=== PATIENT | female | born 1990 | race Caucasian/White ===

== ENCOUNTER 2016-10-05 18:15 | Outpatient (CLI) | payer OTHER ==
[~2016-10-05] VITALS: Ht 152.4 cm; Wt 79.5 kg
[2016-10-05 18:35] VITALS: Ht 152.4 cm; Wt 79.5 kg
[2016-10-05] MEDS ORDERED: PRENAT PO (18:37)
--- NOTE | 2016-10-05 20:36 | PN ---
Date/Time of Note Date/Time of Note DATE: 10/05/16 TIME: 20:34 OB Subjective Subjective Subjective 26 yo P0 @ 39wks 5 days, presents w ctx, no VB, no LOF, good FM OB Objective Objective Objective Abdomen- gravid, n/t SVE- 1/50/-2 FHT- Cat I [place]- irreg ctx OB Assessment/Plan Other plan: reassuring status not in labor d/c home labor precautions BIANCA BARRON MD Oct 05, 2016 20:36
--- NOTE | 2016-10-05 20:42 | TRIAGE ---
OB Triage Datetime Report Generated by CPN: 10/05/2016 20:42 Datetime: 10/05/2016 20:29 Stage of : OB Triage Monitor Mode: External Quality: Moderate Pattern: Normal: <= 5 Contractions in 10 Minutes Resting Tone [place]: Relaxed Heart Rate FHR Baseline Rate: 140 Monitor Mode: External US FHR Baseline Changes: No Baseline Change Variability: Moderate 6-25 bpm Accelerations: 15X15 Decelerations: None Category: Category I Datetime: 10/05/2016 19:29 Stage of : OB Triage Labor Evaluation Frequency: q6-8 Monitor Mode: External Duration (sec)2399: 60-90 Quality: Moderate Pattern: Normal: <= 5 Contractions in 10 Minutes Resting Tone [place]: Relaxed Heart Rate FHR Baseline Rate: 140 Monitor Mode: External US FHR Baseline Changes: No Baseline Change Variability: Moderate 6-25 bpm Accelerations: 15X15 Decelerations: None Category: Category I Datetime: 10/05/2016 19:00 Stage of : OB Triage Labor Evaluation Frequency: 5-8 Monitor Mode: External Duration (sec)2399: 50-90 Quality: Moderate Pattern: Normal: <= 5 Contractions in 10 Minutes Resting Tone [place]: Relaxed Heart Rate FHR Baseline Rate: 140 Monitor Mode: External US FHR Baseline Changes: No Baseline Change Variability: Moderate 6-25 bpm Accelerations: 15X15 Decelerations: None Category: Category I Datetime: 10/05/2016 18:29 Stage of : OB Triage Assessment Type: Triage Maternal Assessment Level of Consciousness: Fully Conscious DTR's/Clonus: DTRs 2+; No Clonus Headache: Denies Blurred Vision: No Respiratory Effort: Unlabored; Regular Rhythm; Equal Expansion Breath Sounds, Left: Clear and Equal Breath Sounds, Right: Clear and Equal Nausea/Vomiting: Denies RUQ Epigastric Pain: Denies Lower Extremities Edema: None Degree: None Upper Extremities Edema: None Degree: None Facial Edema: None Temperature Route: Axillary Fall Risk Assessment History of Falling: (0) No Secondary Diagnosis: (0) No Ambulatory Aid: (0) Bedrest/Nurse Assist IV Therapy: (0) No Gait: (0) Normal/Bedrest/Immobile Mental Status: (0) Oriented to Own Ability Fall Score: 0 Fall Risk Score Definition: No Risk: No action required Labor Evaluation Frequency: X1 Monitor Mode: External Duration (sec)2399: 50 Quality: Mild Pattern: Normal: <= 5 Contractions in 10 Minutes Resting Tone [place]: Relaxed Heart Rate FHR Baseline Rate: 145 Monitor Mode: External US Variability: Moderate 6-25 bpm Decelerations: None Category: Category I Pain Assessment Pain Scale: 6 Pain Presence: Intermittent Pain Type: Cramping; Contraction Pain Location: Abdomen Pain Goal: 3 Pain Relief Measures: Comfort Measures Vaginal Exam Dilatation (cms): 1.0 Effacement (%): 50 Station: -2 Exam By: bry britney Membrane Status: Intact Datetime: 10/05/2016 18:28 EGA: 39.5 Datetime: 10/05/2016 18:27 Time of Arrival: 10/05/2016 18:10 Arrived By: Ambulatory Arrived From: Dr. Jang Chief Complaint: WAS AT CLINIC TODAY AND HAVING UC'S SENT IN BY CLINIC. SCANT BLEEDING, UC'S APPR OX 7-10 DENIES LEAKING Movement: Present Contractions: Irregular Rupture of Membranes: Denies Vaginal Discharge: Present Recent Sexual Intercouse: Denies Abdominal Trauma: Not Applicable Patient Complaints: Cramping Time Provider Notified: 10/05/2016 19:00 Provider Notified: Dr Kaur Initial Plan: MONITOR, VE
== END 2016-10-05 20:39 | disposition home or self-care (01) ==
LOC: L-D 18:15 → OBT 18:15
PROVIDERS: ATTEND Obstetrics & Gynecology
DX: O62.9 Abnormality of forces of labor, unspecified (principal); Z3A.39 39 weeks gestation of pregnancy
CPT/HCPCS: G0463

== ENCOUNTER 2016-10-09 18:15 | Inpatient (IN) | payer OTHER ==
[~2016-10-09] VITALS: Ht 152.4 cm; Wt 79.2 kg
[~2016-10-09 18:15] MED LIST: PRENAT PO
[2016-10-09 18:31] VITALS: Ht 152.4 cm; Wt 79.2 kg
--- NOTE | 2016-10-09 19:03 | TRIAGE ---
OB Triage Datetime Report Generated by CPN: 10/09/2016 19:02 Datetime: 10/09/2016 18:43 Maternal Assessment Level of Consciousness: Fully Conscious DTR's/Clonus: DTRs 1+ Headache: Denies Blurred Vision: No Nausea/Vomiting: Denies RUQ Epigastric Pain: Denies Facial Edema: None Labor Evaluation Frequency: 2-4 Monitor Mode: External Duration (sec)2399: 40-90 Quality: Mild Pattern: Normal: <= 5 Contractions in 10 Minutes Resting Tone [place]: Relaxed Heart Rate FHR Baseline Rate: 140 Monitor Mode: External US Variability: Moderate 6-25 bpm Accelerations: 15X15 Decelerations: None Category: Category I Pain Assessment Pain Scale: 2 Pain Presence: Intermittent Pain Type: Contraction Pain Location: Back Pain Goal: 3 Membrane Status: Intact Datetime: 10/09/2016 18:42 Vaginal Exam Dilatation (cms): 1.0 Effacement (%): 80 Station: -3 Exam By: KASSANDRA GARDNER Vaginal Bleeding: None Cervix, Consistency: Soft Cervix, Position: Midposition Presentation 'A': Cephalic Datetime: 10/09/2016 18:30 Assessment Type: Triage Time of Arrival: 10/09/2016 18:30 EGA: 40.2 Arrived By: Wheelchair Arrived From: Dr. Jang Chief Complaint: R/O LABOR Movement: Present Contractions: Regular Time Contractions Began: 10/09/2016 08:00 Contractions: 5-10 Rupture of Membranes: Denies Vaginal Discharge: Denies Recent Sexual Intercouse: Denies Abdominal Trauma: Not Applicable Patient Complaints: Contractions Additional Patient Complaints: NONE Time Provider Notified: 10/09/2016 18:30 Provider Notified: AIME Initial Plan: MONITOR AND VE Maternal Assessment Level of Consciousness: Fully Conscious DTR's/Clonus: DTRs 2+; No Clonus Headache: Denies Blurred Vision: No Respiratory Effort: Unlabored; Regular Rhythm; Equal Expansion Breath Sounds, Left: Clear and Equal Breath Sounds, Right: Clear and Equal Nausea/Vomiting: Denies RUQ Epigastric Pain: Denies Lower Extremities Edema: None Degree: None Upper Extremities Edema: None Degree: None Facial Edema: None Fall Risk Assessment History of Falling: (0) No Secondary Diagnosis: (0) No Ambulatory Aid: (0) Bedrest/Nurse Assist IV Therapy: (0) No Gait: (0) Normal/Bedrest/Immobile Mental Status: (0) Oriented to Own Ability Fall Score: 0 Fall Risk Score Definition: No Risk: No action required Datetime: 10/05/2016 18:29 Fall Score: 0 Fall Risk Score Definition: No Risk: No action required Datetime: 10/05/2016 18:28 EGA: 39.5
[2016-10-09 19:46] LABS: BASOPHILS % 0.1 % (0.0-2.0); CONDITION 1; EOSINOPHILS # 0.1 10^3/ul (0.0-0.5); EOSINOPHILS % 0.7 % (0.0-7.0); HEMATOCRIT 35.1 % (37.0-47.0); HEMOGLOBIN 12.3 g/dl (12.0-16.0); LYMPHOCYTES # 1.5 10^3/ul (0.8-2.9); LYMPHOCYTES % 13.9 % (15.0-51.0); MEAN CORPUSCULAR HEMOGLOBIN 33.4 pg (29.0-33.0); MEAN CORPUSCULAR VOLUME 95.4 fl (82.0-101.0); MONOCYTE # 0.7 10^3/ul (0.3-0.9); MONOCYTES % 5.9 % (0.0-11.0); NEUTROPHIL # 8.8 10^3/ul (1.6-7.5); NEUTROPHILS % 79.4 % (39.0-77.0); PLATELET COUNT 198 10^3/UL (140-440); RED BLOOD COUNT 3.68 10^6/ul (4.20-5.40); RED CELL DISTRIBUTION WIDTH 14.3 % (11.5-14.5); UNCORRECTED WBC 11.1 10^3/ul (4.8-10.8); WHITE BLOOD COUNT 11.1 10^3/ul (4.8-10.8)
[2016-10-09] MEDS ORDERED: OXYTOCIN 30 UNITS/LR 500 ML IV PRN (20:00)
[2016-10-09] MEDS ORDERED: OXYTOCIN 30 UNITS/LR 500 ML IV SCH ×2 (20:00)
[2016-10-09] MEDS ORDERED: IBUPROFEN 600 MG TAB PO PRN (20:00)
[2016-10-09] MEDS ORDERED: METHYLERGONOVINE 0.2 MG INJ IM PRN (20:00)
[2016-10-09] MEDS ORDERED: LIDOCAINE 1% (MPF) 30 ML INJ INJ PRN (20:00)
[2016-10-09] MEDS ORDERED: CARBOPROST 250 MCG INJ IM PRN (20:00)
[2016-10-09] MEDS ORDERED: MISOPROSTOL 200 MCG TAB PR PRN (20:00)
[2016-10-09] MEDS ORDERED: BUTORPHANOL 2 MG INJ IV PRN (20:00)
[2016-10-09] MEDS: LACTATED RINGER'S 1,000 ML IV SCH (20:03)
[2016-10-09 20:31] LABS: INR 0.97; PROTIME 12.9 Sec (12.2-14.2)
[2016-10-09 20:32] LABS: PARTIAL THROMBOPLASTIN TIME 24.2 Sec (25.0-35.0)
[2016-10-09] MEDS: MISOPROSTOL 25 MCG CAPSULE PO SCH (21:49)
[2016-10-10] MEDS: MISOPROSTOL 25 MCG CAPSULE PO SCH (01:00)
[2016-10-10] MEDS: LACTATED RINGER'S 1,000 ML IV SCH ×3 (01:03→21:43)
[2016-10-10] MEDS ORDERED: MISOPROSTOL 25 MCG CAPSULE PO PRN (02:10)
[2016-10-10] MEDS ORDERED: BUTORPHANOL 2 MG INJ IV PRN (03:57)
[2016-10-10] MEDS: LACTATED RINGER'S 1,000 ML IV PRN ×2 (06:57→07:50)
[2016-10-10] MEDS ORDERED: FENTAnyl 2MCG/ML-ROPIV 0.2% 100 ML ONE (07:45)
[2016-10-10 08:21] VITALS: BP 119/65; PULSE 87; RESP 20
[2016-10-10] MEDS: OXYTOCIN 30 UNITS/LR 500 ML IV SCH (08:41)
[2016-10-10] MEDS ORDERED: NALOXONE (0.4 MG/ML) INJ IV PRN (10:00)
--- NOTE | 2016-10-10 10:19 | RADRPT ---
PROCEDURE: Obstetrical ultrasound. CLINICAL INDICATION: , evaluation. Pelvic pain. Macrosomia TECHNIQUE: Transabdominal sonographic images of the pelvis are obtained. COMPARISON: No prior studies are available for comparison. FINDINGS: Cervix is not visualized transabdominally. Single intrauterine gestation. There is a cephalic presentation. Measurements were made in order to determine age. The results are as follows: BPD = 9.40 cm HC = 34.02 cm AC = 36.03 cm FL = 7.06 cm Heart rate = 154 beats per minute The placenta is fundal - posterior; lower margin is not well visualized. No evidence of placental ab ruption is seen. Ovaries are not visualized. IMPRESSION: Single intrauterine gestation of approximately 38 weeks 3 days by ultrasound criteria. Estimated weight = 3616 g; 43 percentile for estimated ultrasound age. RPTAT: AADD .Jose Luis Arce MD, Date Time Electronically viewed and signed by .Jose Luis Arce MD, on 10/10/2016 10:18 .B/
[2016-10-10] MEDS: FENTAnyl 2MCG/ML-ROPIV 0.2% 100 ML BAG EPI SCH ×3 (15:41→23:03)
[2016-10-10] MEDS ORDERED: AMPICILLIN 2 GM/NS (PMX) 100 ML IVPB ONE (21:00)
[2016-10-10] MEDS ORDERED: CLINDAMYCIN 900 MG/D5W (PMX) 50 ML IVPB SCH (21:00)
[2016-10-10] MEDS ORDERED: GENTAMICIN 120 MG/NS (PMX) 100 ML IVPB ONE (23:30)
[2016-10-11] MEDS ORDERED: VANCOMYCIN 1 GM (PMX) 250 ML IVPB SCH (00:30)
[2016-10-11] MEDS ORDERED: AMPICILLIN 1 GM/NS (PMX) 50 ML IVPB SCH (01:00)
[2016-10-11 01:05] LABS: HEMATOCRIT 35.1 % (37.0-47.0); HEMOGLOBIN 12.1 g/dl (12.0-16.0); LYMPHOCYTES # 0.9 10^3/ul (0.8-2.9); MEAN CORPUSCULAR HEMOGLOBIN 33.2 pg (29.0-33.0); MEAN CORPUSCULAR HGB CONC 34.6 g/dl (32.0-37.0); MEAN CORPUSCULAR VOLUME 95.7 fl (82.0-101.0); MEAN PLATELET VOLUME 8.1 fl (7.4-10.4); MONOCYTE # 1.3 10^3/ul (0.3-0.9); MONOCYTES % 7.9 % (0.0-11.0); NEUTROPHIL # 14.8 10^3/ul (1.6-7.5); NEUTROPHILS % 87.1 % (39.0-77.0); PLATELET COUNT 188 10^3/UL (140-440); RED BLOOD COUNT 3.66 10^6/ul (4.20-5.40); RED CELL DISTRIBUTION WIDTH 14.4 % (11.5-14.5)
[2016-10-11 01:06] LABS: CONDITION 1
[2016-10-11] MEDS: LACTATED RINGER'S 1,000 ML IV SCH ×3 (07:19→19:36)
[2016-10-11] MEDS: FENTAnyl 2MCG/ML-ROPIV 0.2% 100 ML BAG EPI SCH ×2 (07:45→14:57)
[2016-10-11] MEDS: GENTAMICIN 80 MG/NS (PMX) 50 ML IVPB SCH ×2 (07:55→20:15)
[2016-10-11] MEDS: OXYTOCIN 30 UNITS/LR 500 ML IV SCH ×2 (10:52→23:17)
[2016-10-11] MEDS ORDERED: CITRIC ACID/NA CITRATE 30 ML CUP ONE (17:16)
[2016-10-11] MEDS ORDERED: ONDANSETRON 4 MG INJ ONE (17:16)
[2016-10-11] MEDS ORDERED: ONDANSETRON 4 MG INJ IV STA (17:17)
[2016-10-11] MEDS ORDERED: MISOPROSTOL 200 MCG TAB PR PRN ×2 (17:30→22:30)
[2016-10-11] MEDS ORDERED: METHYLERGONOVINE 0.2 MG INJ IM PRN ×2 (17:30→22:30)
[2016-10-11] MEDS ORDERED: OXYTOCIN 30 UNITS/LR 500 ML IV PRN ×2 (17:30→22:30)
[2016-10-11] MEDS ORDERED: CARBOPROST 250 MCG INJ IM PRN ×2 (17:30→22:30)
[2016-10-11] MEDS ORDERED: CITRIC ACID/NA CITRATE 30 ML CUP PO ONE (17:30)
--- NOTE | 2016-10-11 17:44 | HP ---
Date/Time of Note Date/Time of Note DATE: 10/11/16 TIME: 17:19 OB - History Hx of Present Free Text/Dictation This is a 26 years old Frisian female 1 para 0 with an EDC of October [address] [facility] for induction of labor on October 09, 2016. Upon admission to the labor and delivery room pelvic pelvic examination carried out cervical dilatation at 1 cm 60% effacement -2 station induction started by trac Cytotec 50 g 2 followed with Pitocin induction, continued having good contraction with progress in cervical dilatation, pelvic examination at 7:30 on October 11 cervical dilatation at 9 cm 100% effacement with presenting part vertex at -2 station moderate to large caput, labor allowed to continue however cervical dilatation did not progress further beyond 9 cm, pelvic exam on 1529 cervix was completely dilated then patient started pushing at 1600 for approximately 1 hour and 30 minutes when she decided not to continue further pushing and trial of labor, requested operative delivery by C section. 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13 history of regular periods lasting for 5 days per cycle No history of any surgical or medical condition in patients past surgery Social habits Denies smoking or drinking Review of system within normal considering term regnancy Physical exam 5 foot, 174 pounds Temperature 97.9 pulse 91 respiration 18 blood pressure 122/71 Head ears nose and throat normal Neck, supple no thyromegaly Lungs clear to PNA Heart, normal sinusal rhythm ,no murmur Breasts, status compatible with state of Abdomen, fundal height 37 cm from symphysis pubis to the height of the fundus heart rate category 1, contraction every 3-4 minutes Pelvic exam, cervix completely dilated presenting part vertex at -2 station with large caput Impression Intrauterine at 40 weeks and 4 days failure to progress at second stage of labor declined further trial of labor at second stage requesting C- section delivery Patient is aware of complication of the surgery including bowel, bladder injury wound infection hemorrhage and wound hematoma she is willing to proceed with the operation Estimated Due Date: Oct 07, 2016 : 1 Para: 0 Care: Limited Care Ultrasounds: Normal mid trimester US Obstetrical Complications: None Medical Complications: None Past Family/Social History * Past Medical, Surgical, Family and Obstetric Histories reviewed from chart. Rubella: immune RPR/VDRL: Negative GBS Status: Negative HBsAG: Negative OB Admission Exam Vital Signs Vital Signs Vital Signs Date Time Temp Pulse Resp B/P Pulse Ox O2 Delivery O2 Flow Rate FiO2 10/10/16 08:21 98.6 87 20 119/65 Room Air Physical Exam HEENT: WNL Heart: Rhythm Normal Lungs: Clear, Equal Extremities: Normal Reflexes: Normal Cervical Dilatation: 10cm Effacement: 100% Station: -2 Membranes: Ruptured Amniotic Fluid: Thick Meconium Heart Rate: 130's Accelerations: Accelerations Present Decelerations: No Decelerations Varibility: Moderate Contractions on Admission: < 5 Minutes Apart Intensity: Firm Last 72 hours Lab Results CBC & BMP 10/09/16 19:30 10/10/16 00:32 SOHEILA SALOMON MD Oct 11, 2016 17:38
[2016-10-11] MEDS ORDERED: OXYTOCIN 10 UNIT INJ ONE (17:49)
[2016-10-11] MEDS ORDERED: morphine SULFATE/PF (10 MG/10 ML) INJ ONE (17:49)
[2016-10-11] MEDS ORDERED: LIDOCAINE 2% (SDV) 5 ML INJ ONE ×3 (17:49→17:57)
[2016-10-11] MEDS ORDERED: METOCLOPRAMIDE 10 MG INJ ONE (17:49)
[2016-10-11] MEDS ORDERED: FENTAnyl 50 MCG/ML VIAL ONE ×3 (17:49→18:25)
[2016-10-11] MEDS ORDERED: NA BICARBONATE 8.4% 50 ML SYG ONE (17:49)
[2016-10-11] MEDS ORDERED: KETOROLAC 30 MG INJ ONE (18:25)
[2016-10-11] MEDS ORDERED: DIPHENHYDRAMINE 50 MG INJ IV PRN ×2 (18:30)
[2016-10-11] MEDS ORDERED: ONDANSETRON 4 MG INJ IV PRN ×2 (18:30)
[2016-10-11] MEDS ORDERED: HYDROmorphONE (0.2 MG/ML) 10ML SYG IV PRN ×3 (18:30)
[2016-10-11] MEDS ORDERED: LABETALOL HCL 20MG INJ IV PRN (18:30)
[2016-10-11] MEDS ORDERED: morphine 2 MG INJ IV PRN ×2 (18:30)
[2016-10-11] MEDS ORDERED: EPHEDrine SULFATE 50 MG/5 ML SYG IV PRN (18:30)
[2016-10-11] MEDS ORDERED: MIDAZOLAM 1 MG/ML 2 ML INJ IV PRN (18:30)
[2016-10-11] MEDS ORDERED: FENTAnyl 50 MCG/ML VIAL IV PRN ×3 (18:30)
[2016-10-11] MEDS ORDERED: NALOXONE (0.4 MG/ML) INJ IV PRN (18:30)
[2016-10-11] MEDS ORDERED: TRIMETHOBENZAMIDE 100 MG/ML VIAL IM PRN (18:30)
[2016-10-11] MEDS ORDERED: ZOLPIDEM 5 MG TAB PO PRN (18:30)
[2016-10-11] MEDS ORDERED: hydrALAzine 20 MG INJ IV PRN (18:30)
[2016-10-11] MEDS ORDERED: MEPERIDINE 25 MG INJ IV PRN (18:30)
--- NOTE | 2016-10-11 19:04 | OPR ---
DATE OF OPERATION: 10/11/2016 PREOPERATIVE DIAGNOSES: 1. Intrauterine 40 weeks 4 days, failed induction, failed to progress second stage of lab or. 2. Declined further trial of labor at second stage of labor, requesting operative delivery. PROCEDURE: Primary transverse low cervical section. SURGEON: Soheila Kaur MD PIG CASTER: Edgar Mar MD ANESTHESIA: Spinal. ANESTHESIOLOGIST: Dr. Eldridge. FINDINGS: Live baby boy with the 8 and 9. Baby weighed 8 pounds 9 ounces. DETAILS OF THE PROCEDURE: Under satisfactory spinal anesthesia, the patient was prepped and draped, and placed in supine position, tilted to the left. Pfannenstiel incision was made. Incision jatin ed through the subcutaneous tissue. Bleeders brought under control with electrocautery. Fascia inc ised to the length of the incision. Rectus muscle divided in midline. Peritoneum exposed, entered through a transverse incision. Exploration of abdomen revealed a gravid uterus at term, evidence of a long labor with normal appearing tubes and ovaries. Bladder flap was developed. Transverse inci artem was made in the lower segment of the uterus. Amniotic sac ruptured. Scant amount of clear amn iotic fluid noted. Live baby boy was delivered from occiput posterior with the baby's hand on the r ight side of the baby's face. Nasal oropharyngeal suction was performed. Baby handed to the neonat al team for immediate attention. The patient received 20 units of Pitocin. Placenta delivered manu ally intact. Uterine cavity cleaned with wet sponge and drainage established. Uterus closed in 2 l merida using Monocryl #1 in continuous fashion. Peritoneal cavity irrigated with warm saline. Spong e, needle, and instrument reported to be correct. Abdominal peritoneum closed with 2-0 chromic catg ut continuously. Rectus muscle approximated with few interrupted 2-0 chromic catgut. Fascia closed with #1 PDS in a continuous fashion. Subcutaneous tissue approximated with 2-0 chromic catgut and the skin closed with chantal. ESTIMATED BLOOD LOSS: 700 mL. URINE OUTPUT: Urine bag contained blood tinged urine, which was the same color prior to the surgery , approximately 200 to 300 mL in the bag. The patient tolerated procedure well, transferred to recovery room in a good condition. Dictated By: SOHEILA MARKHAM/NTS Conf#: [id number] [facility]#: [id number]
[2016-10-11] MEDS: KETOROLAC 30 MG INJ IV PRN (19:34)
--- NOTE | 2016-10-11 21:21 | DELSUM ---
Delivery Summary A-C Datetime Report Generated by CPN: 10/11/2016 21:21 DELIVERY PERSONNEL Radiological Health Specialist: Michellepaul Violeta Enrollment Representative: RUSLAN MATERNAL INFORMATION Delivery Anesthesia: Epidural Medications in Delivery: LR WITH 30 UNITS PITOCIN Estimated Blood Loss (ml): 600 Placenta Cultured: No Maternal Complications: None LABOR SUMMARY EDC: 10/07/2016 00:00 No. Babies in Womb: 1 Attempted: No Labor Anesthesia: Epidural LABOR INFORMATION Reason for Induction: Postterm Onset of Labor: 10/10/2016 09:06 Complete Dilatation: 10/11/2016 15:59 Cervical Ripening Agents: Cytotec @ (Annotations: 50MCG PO (DOSE #2)) Cervical Ripening Agents: Cytotec @ (Annotations: 50MCG PO GIVEN (DOSE #1)) Oxytocin: Augmentation Group B Beta Strep: Negative Antibiotics # of Doses: 4 Antibiotics Time of Last Dose: 0755 Steroids Given: None Reason Steroids Not Administered: Not Applicable MEMBRANES Membranes Rupture Method: Artificial Rupture of Membranes: 10/10/2016 09:06 Length of Rupture (hr): 33.12 Amniotic Fluid Color: Clear Amniotic Fluid Amount: Small Amniotic Fluid Odor: Normal STAGES OF LABOR Stage 1 hr: 30 Stage 1 min: 53 Stage 2 hr: 2 Stage 2 min: 14 Stage 3 hr: 0 Stage 3 min: 1 Total Time in Labor hr: 33 Total Time in Labor min: 8 CSECTION DELIVERY Primary Indication: Failure of Descent CSection Urgency: Elective CSection Incidence: Primary Labor: Labor Elective: Elective CSection Incision: Lower Uterine Transverse BABY A INFORMATION Delivery Date/Time: 10/11/2016 18:13 Method of Delivery: Born in Route : No : N/A Forceps: N/A Vacuum Extraction: N/A Shoulder Dystocia : N/A SHOULDER DYSTOCIA BABY A Delivery Date/Time: 10/11/2016 18:13 PRESENTATION/POSITION BABY A Presentation: Cephalic Presentation: Cephalic Presentation: Cephalic Presentation: Cephalic Presentation: Cephalic Presentation: Cephalic Cephalic Presentation: Vertex Vertex Position: Left Occipital Anterior Breech Presentation: N/A PLACENTA INFORMATION BABY A Placenta Delivery Time : 10/11/2016 18:14 Placenta Method of Delivery: Manual Removal Placenta Status: Delivered SCORES BABY A Heart Rate 1 min: >100 bpm Resp Effort 1 min: Good Cry Reflex Irritability 1 min: Cough/Sneeze/Pulls Away Muscle Tone 1 min: Active Motion Color 1 min: Blue/Pale Resuscitation Effort 1 min: Tactile Stimulation SCORE 1 MIN: 8 Heart Rate 5 min: >100 bpm Resp Effort 5 min: Good Cry Reflex Irritability 5 min: Cough/Sneeze/Pulls Away Muscle Tone 5 min: Active Motion Color 5 min: Body Poston, Extremit Blue Resuscitation Effort 5 min: Tactile Stimulation SCORE 5 MIN: 9 INFANT INFORMATION BABY A Gestational Age at Delivery: 40.4 Gestational Status: Full Term- 39- 40.6 Weeks Outcome : Liveborn Condition : Stable Sex: Male IDENTIFICATION/MEDS BABY A ID Band Number: [id number] ID Band Location: Right Leg; Left Arm Sensor Applied: Yes Sensor Number: [id number] Sensor Location : Cord Clamp Vitamin K Given : Not Given Erythromycin Given: Not Given WEIGHT/LENGTH BABY A Infant Birthweight (gm): 3880 Weight (lb): 8 Weight (oz): 9 Length (in): 21.00 Length (cm): 53.34 CORD INFORMATION BABY A No. Cord Vessels: 3 Nuchal Cord : N/A Cord Blood Taken: Yes Suction: Mouth; Nose ASSESSMENT BABY A Complications: None Physical Findings at Delivery: Molding of the Head Infant Respirations: Appears Normal Metal Storage Worker/ALS Called : Yes Infant Care By: RN AND RT Transferred To: Remains with Mother
--- NOTE | 2016-10-11 21:53 | OPRPT ---
Intraop Record Datetime Report Generated by CPN: 10/11/2016 21:52 Datetime: 10/11/2016 21:00 Sequential Compression Device: Yes Datetime: 10/11/2016 20:45 Sequential Compression Device: Yes Datetime: 10/11/2016 20:30 Sequential Compression Device: Yes Datetime: 10/11/2016 20:15 Sequential Compression Device: Yes Datetime: 10/11/2016 20:00 Sequential Compression Device: Yes Datetime: 10/11/2016 19:58 Drug Allergies/Reactions: Penicillins/DC/hives (10/11/2016) Datetime: 10/11/2016 19:45 Sequential Compression Device: Yes Datetime: 10/11/2016 19:30 Sequential Compression Device: Yes Datetime: 10/11/2016 19:15 Sequential Compression Device: Yes Datetime: 10/11/2016 18:23 OR Number: 2 TIMES/PROCEDURE Arrive OR: 10/11/2016 17:32 Depart OR: 10/11/2016 18:55 Anesthesia Start: 10/11/2016 17:40 Anesthesia End: 10/11/2016 18:59 Surgery Start: 10/11/2016 18:08 Surgery End: 10/11/2016 18:47 Preoperative Dx: PRIMARY SECTION Surgical Procedure: Section Postoperative Dx: SAME Uterine Incision: 10/11/2016 18:08 PERSONNEL Surgeon: Lauren Kaur Scrub: Damaso Holm Anesthesia Care Provider: Marco Eldridge Care: See Delivery Summary for Infant Care Providers Anesthesia Type: Epidural ASA Level: II RISK FOR INJURY Mode of Arrival: Bed Procedure Time Out: Correct Patient Identity; Correct Side and Site are Marked (if applicable); Agr eement on Procedure to be Done; Correct Patient Position; Safety Precautions Based on Patient Histor y or Medication Use; Allergies Reviewed Preoperative Information: Preoperative Checklist Reviewed; Allergies Reviewed; NPO Status Verified RISK FOR ANXIETY/KNOW DEFICIT Emotional Status: Calm/Relaxed Interventions: Provided Education Based on Age and Identified Needs; Communicated Patient Concerns to Appropriate Members of the Health Care Team; Explained Sequence of Events and Perioperative Routi ne; Evaluated Response to Instructions PREOPERATIVE OUTCOMES Preoperative Outcomes: Verbalizes/Indicates Decreased Anxiety, Ability to [place], Understanding of Pr ocedure and Sequence of Events. Questions Answered; Demonstrates Adequate Pain Management; Verbaliz es Comfort Related to Transfer/Transport RISK FOR INFECTION Skin Pre-Operative Site: Intact Clip: Clip Clip Location: CLOSED LEG ABD Prep: Yes Prep By: Davy JENKINS Prep Solution: Chlorohexadine Catheter: Chaidez Catheter Size: 16 Catheter Inserted By: DONNA Surgical Wound Class: [id number] Dressing Type: Secured Gauze Risk for Impaired Skin Integrity Position in OR: Supine Bony Prominences Protection: Arms Tucked/Padded Positioning Devices: Leg Worthy Risk for Hypothermia Warming Interventions: Warm [place](s) Risk for Injury Safety Straps Applied: Legs Sequential Compression Device: Yes Electrosurgical Unit: Yes Electrosurgical Unit Number: [id number] Bipolar Number: [id number] EXP 2018-06-20 Ground Pad Location: Right Lateral Thigh Coag Number: [id number] Cut Number: 55 1st Count Sponge Count: Correct Needle Count: Correct Blade Count: Correct Instrument Count: Correct 2nd Count Sponge Count: Correct Needle Count: Correct Blade Count: Correct Instrument Count: Correct 3rd Count Sponge Count: Correct Needle Count: Correct Blade Count: Correct Instrument Count: Correct Final Count Sponge Count 4: Correct Needle Count 4: Correct Blade Count 4: Correct Instrument Count 4: Correct Surgeon Acknowledged Count: Yes Final Count Resolution: Count Correct Intraoperative Data Equipment: Non-Invasive Blood Pressure; Pulse Oximeter; EKG; Warming [place] Blood Products Given: N/A Implants/Prosthesis Implants/Prosthesis: N/A Grafts: N/A Irrigation Irrigants: NACL; Sterile H2O Irrigation Amount: ONE EACH Specimens Specimens: N/A Cultures Cultures: N/A X-Ray X-Ray Taken: No Postoperative Skin: Cool; Dry Pain Scale: 0 Condition: Awake; Alert Temperature: 98.5 Operative Outcomes: Patient's Surgery Performed Using Aseptic Technique and in a Manner to Prevent Cross-Contamination; Skin Remains Smooth, Intact, Non-reddened, Non-irritated, Free of Bruising; Cor e Body Temperature Remains in Expected Range Transfer To: L_D Other: RR Datetime: 10/10/2016 23:37 Drug Allergies/Reactions: Penicillins/DC/hives (10/10/2016) Datetime: 10/10/2016 18:06 Drug Allergies/Reactions: Penicillins/hives (10/10/2016) Datetime: 10/05/2016 18:28 Drug Allergies/Reactions: PCN Food Allergies/Reactions: NONE Latex Allergies/Reactions: No Latex Allergies
--- NOTE | 2016-10-11 21:53 | DELSUM ---
Delivery Summary A-C Datetime Report Generated by CPN: 10/11/2016 21:52 DELIVERY PERSONNEL [employer] Operator: Michellepaul Violeta Rent Collector: RUSLAN MATERNAL INFORMATION Delivery Anesthesia: Epidural Medications in Delivery: LR WITH 30 UNITS PITOCIN Estimated Blood Loss (ml): 600 Placenta Cultured: No Maternal Complications: None LABOR SUMMARY EDC: 10/07/2016 00:00 No. Babies in Womb: 1 Attempted: No Labor Anesthesia: Epidural LABOR INFORMATION Reason for Induction: Postterm Onset of Labor: 10/10/2016 09:06 Complete Dilatation: 10/11/2016 15:59 Cervical Ripening Agents: Cytotec @ (Annotations: 50MCG PO (DOSE #2)) Cervical Ripening Agents: Cytotec @ (Annotations: 50MCG PO GIVEN (DOSE #1)) Oxytocin: Augmentation Group B Beta Strep: Negative Antibiotics # of Doses: 4 Antibiotics Time of Last Dose: 0755 Steroids Given: None Reason Steroids Not Administered: Not Applicable MEMBRANES Membranes Rupture Method: Artificial Rupture of Membranes: 10/10/2016 09:06 Length of Rupture (hr): 33.12 Amniotic Fluid Color: Clear Amniotic Fluid Amount: Small Amniotic Fluid Odor: Normal STAGES OF LABOR Stage 1 hr: 30 Stage 1 min: 53 Stage 2 hr: 2 Stage 2 min: 14 Stage 3 hr: 0 Stage 3 min: 1 Total Time in Labor hr: 33 Total Time in Labor min: 8 CSECTION DELIVERY Primary Indication: Failure of Descent CSection Urgency: Elective CSection Incidence: Primary Labor: Labor Elective: Elective CSection Incision: Lower Uterine Transverse BABY A INFORMATION Delivery Date/Time: 10/11/2016 18:13 Method of Delivery: Born in Route : No : N/A Forceps: N/A Vacuum Extraction: N/A Shoulder Dystocia : N/A SHOULDER DYSTOCIA BABY A Delivery Date/Time: 10/11/2016 18:13 PRESENTATION/POSITION BABY A Presentation: Cephalic Presentation: Cephalic Presentation: Cephalic Presentation: Cephalic Presentation: Cephalic Presentation: Cephalic Cephalic Presentation: Vertex Vertex Position: Left Occipital Anterior Breech Presentation: N/A PLACENTA INFORMATION BABY A Placenta Delivery Time : 10/11/2016 18:14 Placenta Method of Delivery: Manual Removal Placenta Status: Delivered SCORES BABY A Heart Rate 1 min: >100 bpm Resp Effort 1 min: Good Cry Reflex Irritability 1 min: Cough/Sneeze/Pulls Away Muscle Tone 1 min: Active Motion Color 1 min: Blue/Pale Resuscitation Effort 1 min: Tactile Stimulation SCORE 1 MIN: 8 Heart Rate 5 min: >100 bpm Resp Effort 5 min: Good Cry Reflex Irritability 5 min: Cough/Sneeze/Pulls Away Muscle Tone 5 min: Active Motion Color 5 min: Body [place], Extremit Blue Resuscitation Effort 5 min: Tactile Stimulation SCORE 5 MIN: 9 INFANT INFORMATION BABY A Gestational Age at Delivery: 40.4 Gestational Status: Full Term- 39- 40.6 Weeks Outcome : Liveborn Condition : Stable Sex: Male IDENTIFICATION/MEDS BABY A ID Band Number: [id number] ID Band Location: Right Leg; Left Arm Sensor Applied: Yes Sensor Number: [id number] Sensor Location : Cord Clamp Vitamin K Given : Not Given Erythromycin Given: Not Given WEIGHT/LENGTH BABY A Infant Birthweight (gm): 3880 Weight (lb): 8 Weight (oz): 9 Length (in): 21.00 Length (cm): 53.34 CORD INFORMATION BABY A No. Cord Vessels: 3 Nuchal Cord : N/A Cord Blood Taken: Yes Suction: Mouth; Nose ASSESSMENT BABY A Complications: None Physical Findings at Delivery: Molding of the Head Infant Respirations: Appears Normal Netbackup Administrator/ALS Called : Yes Infant Care By: RN AND RT Transferred To: Remains with Mother
[2016-10-11 22:00] VITALS: BP 118/66; PULSE 88; RESP 18
[2016-10-11] MEDS ORDERED: OXYCODONE/ACETAMINOPHEN (5/325) TAB PO PRN (22:30)
[2016-10-11] MEDS ORDERED: CEFAZOLIN 1 GM/50 ML (PMX) 50 ML IVPB SCH (22:30)
[2016-10-11] MEDS ORDERED: ACETAMINOPHEN/CODEINE #3 TAB PO PRN ×2 (22:30)
[2016-10-11] MEDS ORDERED: LANOLIN 7 GM TUBE TOP PRN (22:30)
[2016-10-11] MEDS ORDERED: CLINDAMYCIN 900 MG/D5W (PMX) 50 ML IVPB SCH (23:00)
[2016-10-12] VITALS (7 sets, daily range): BP systolic 97–123; BP diastolic 53–72; PULSE 72–89; RESP 18–20
[2016-10-12] MEDS: KETOROLAC 30 MG INJ IV PRN ×3 (01:53→14:30)
[2016-10-12] MEDS: LACTATED RINGER'S 1,000 ML IV SCH ×3 (03:36→19:36)
[2016-10-12] MEDS: OXYTOCIN 30 UNITS/LR 500 ML IV SCH ×4 (04:23→14:23)
[2016-10-12] MEDS: IBUPROFEN 600 MG TAB PO SCH ×5 (05:12→23:48)
[2016-10-12 08:27] LABS: HEMATOCRIT 28.6 % (37.0-47.0); HEMOGLOBIN 9.9 g/dl (12.0-16.0); MEAN CORPUSCULAR HEMOGLOBIN 33.7 pg (29.0-33.0); MEAN CORPUSCULAR HGB CONC 34.7 g/dl (32.0-37.0); MEAN CORPUSCULAR VOLUME 96.9 fl (82.0-101.0); MEAN PLATELET VOLUME 7.8 fl (7.4-10.4); PLATELET COUNT 148 10^3/UL (140-440); RED BLOOD COUNT 2.95 10^6/ul (4.20-5.40); RED CELL DISTRIBUTION WIDTH 14.2 % (11.5-14.5); UNCORRECTED WBC 13.2 10^3/ul (4.8-10.8); WHITE BLOOD COUNT 13.2 10^3/ul (4.8-10.8)
[2016-10-12 08:32] LABS: CONDITION 1; LH ANALYZER COMMENTS 1; SUSPECT 1
[2016-10-12 09:50] LABS: EOSINOPHILS # 0.3 10^3/ul (0.0-0.5); LYMPHOCYTES # 0.5 10^3/ul (0.8-2.9); MONOCYTE # 0.9 10^3/ul (0.3-0.9); NEUTROPHIL # 9.2 10^3/ul (1.6-7.5)
--- NOTE | 2016-10-12 11:42 | PN ---
Date/Time of Note Date/Time of Note DATE: 10/12/16 TIME: 11:41 OB Subjective Subjective Subjective Post day 1 Afebrile vital sign stable abdomen soft lochia normal incision dry extremity normal ambulation recommended Laboratory Tests Test 10/12/16 08:00 Band Neutrophils % 17.0% Basophils # 10^3/ul Basophils % % Differential Comment MANUAL DIFF Eosinophils # 0.310^3/ul Eosinophils % 2.0% Hematocrit 28.6% Hemoglobin 9.9g/dl Lymphocytes # 0.510^3/ul Lymphocytes % 4.0% Mean Corpuscular Hemoglobin 33.7pg Mean Corpuscular Hemoglobin Concent 34.7g/dl Mean Corpuscular Volume 96.9fl Mean Platelet Volume 7.8fl Monocytes # 0.910^3/ul Monocytes % 7.0% Neutrophils # 9.210^3/ul Neutrophils % 70.0% Nucleated Red Blood Cells # 10^3/ul Nucleated Red Blood Cells % /100WBC Platelet Count 51731^3/UL Red Blood Count 2.9510^6/ul Red Cell Distribution Width 14.2% White Blood Count 13.210^3/ul Current Medications Medications (Trade) Dose Ordered Sig/Marcelino Route PRN Reason Start Time Stop Time Status Last Admin Dose Admin Lactated Ringer's 1,000 ml @ 125 mls/hr Q8H IV 10/09/16 19:36 10/12/16 08:04 Oxytocin/Lactated Ringer's 500 ml @ 0 mls/hr TITRATE IV 10/09/16 20:00 10/11/16 22:30 DC 10/11/16 10:52 Butorphanol Tartrate (Stadol) 1 mg Q2H PRN IV PAIN 10/09/16 20:00 10/11/16 22:30 DC Lidocaine 30 ml 30 ml ONCE PRN INJ EPISIOTOMY/TEARING 10/09/16 20:00 10/11/16 22:30 DC Oxytocin/Lactated Ringer's 500 ml @ 125 mls/hr ONCE -MAY REPEAT X1 IV 10/09/16 20:00 10/11/16 22:30 DC Oxytocin/Lactated Ringer's 500 ml @ 125 mls/hr ONCE IV 10/09/16 20:00 10/11/16 22:30 DC 10/11/16 19:23 Ibuprofen 600 mg 600 mg ONCE PRN PO Mild Pain (Pain Score 1-3) 10/09/16 20:00 10/11/16 22:31 DC Lactated Ringer's 1,000 ml @ 2,000 mls/hr Q30M PRN IV PRE-EPIDURAL BOLUS 10/09/16 19:36 10/11/16 22:30 DC 10/10/16 07:50 Oxytocin/Lactated Ringer's 500 ml @ 0 mls/hr ONCE PRN IV For Hemorrhage Management 10/09/16 20:00 10/11/16 17:14 DC Methylergonovine Maleate (Methergine) 0.2 mg ONCE PRN IM VAGINAL BLEEDING 10/09/16 20:00 10/11/16 17:14 DC Carboprost Tromethamine (Hemabate) 250 mcg ONCE PRN IM VAGINAL BLEEDING 10/09/16 20:00 10/11/16 17:14 DC Misoprostol (Cytotec) 1,000 mcg ONCE PRN MO VAGINAL BLEEDING 10/09/16 20:00 10/11/16 17:14 DC Misoprostol (Cytotec 25 Mcg Capsule) 50 mcg Q4 PO 10/09/16 21:45 10/10/16 02:09 DC 10/09/16 21:49 Misoprostol (Cytotec 25 Mcg Capsule) 50 mcg Q4 PRN PO CERVICAL RIPENING 10/10/16 02:10 10/11/16 22:31 DC 10/10/16 03:08 Butorphanol Tartrate 2 mg 2 mg Q2H PRN IV PAIN 10/10/16 03:57 10/11/16 22:31 DC 10/10/16 04:00 Fentanyl/ Ropivacaine 100 ml @ ud STK-MED ONCE .ROUTE 10/10/16 07:45 10/10/16 07:46 DC Naloxone HCl (Narcan) 0.1 mg Q2M PRN IV FOR RESP RATE 8 OR LESS 10/10/16 10:00 10/11/16 09:59 DC Fentanyl/ Ropivacaine 100 ml 100 ml EPIDURAL INFUSION EPI 10/10/16 10:00 10/11/16 22:31 DC 10/11/16 14:57 Ampicillin 100 ml @ 100 mls/hr ONCE ONCE IVPB 10/10/16 21:00 10/10/16 21:00 DC Ampicillin 50 ml @ 100 mls/hr Q4 IVPB 10/11/16 01:00 10/11/16 01:00 DC Clindamycin HCl/ Dextrose 50 ml @ 50 mls/hr Q8 IVPB 10/10/16 21:00 10/10/16 23:33 DC 10/10/16 21:38 Gentamicin Sulfate 100 ml @ 200 mls/hr ONCE ONCE IVPB 10/10/16 23:30 10/10/16 23:59 DC 10/10/16 23:58 Gentamicin Sulfate 50 ml @ 104 mls/hr Q8H IVPB 10/11/16 07:30 10/11/16 22:30 DC 10/11/16 07:55 Vancomycin HCl 250 ml @ 125 mls/hr Q24H IVPB 10/11/16 00:30 10/11/16 22:31 DC 10/11/16 01:45 Oxytocin/Lactated Ringer's 500 ml @ 0 mls/hr ONCE PRN IV For Hemorrhage Management 10/11/16 17:30 10/11/16 22:31 DC Methylergonovine Maleate (Methergine) 0.2 mg ONCE PRN IM VAGINAL BLEEDING 10/11/16 17:30 10/11/16 22:31 DC Carboprost Tromethamine (Hemabate) 250 mcg ONCE PRN IM VAGINAL BLEEDING 10/11/16 17:30 10/11/16 22:31 DC Misoprostol (Cytotec) 1,000 mcg ONCE PRN MO VAGINAL BLEEDING 10/11/16 17:30 10/11/16 22:31 DC Citric Acid/ Sodium Citrate (Bicitra) 30 ml STK-MED ONCE .ROUTE 10/11/16 17:16 10/11/16 17:17 DC Ondansetron HCl (Zofran Inj) 4 mg STK-MED ONCE .ROUTE 10/11/16 17:16 10/11/16 17:17 DC Citric Acid/ Sodium Citrate (Bicitra) 30 ml ONCE ONCE PO 10/11/16 17:30 10/11/16 17:31 DC 10/11/16 17:22 Ondansetron HCl (Zofran Inj) 4 mg ONCE STAT IV 10/11/16 17:17 10/11/16 17:20 DC 10/11/16 17:22 Lidocaine (Xylocaine 2% (Sdv)) 100 mg STK-MED ONCE .ROUTE 10/11/16 17:49 10/11/16 17:50 DC Sodium Bicarbonate (Na Bicarb 8.4% Syg) 50 ml STK-MED ONCE .ROUTE 10/11/16 17:49 10/11/16 17:50 DC Morphine Sulfate (Duramorph) 10 mg STK-MED ONCE .ROUTE 10/11/16 17:49 10/11/16 17:50 DC Fentanyl (Sublimaze) 100 mcg STK-MED ONCE .ROUTE 10/11/16 17:49 10/11/16 17:50 DC Metoclopramide HCl (Reglan) 10 mg STK-MED ONCE .ROUTE 10/11/16 17:49 10/11/16 17:50 DC Oxytocin (Oxytocin) 10 units STK-MED ONCE .ROUTE 10/11/16 17:49 10/11/16 17:50 DC Lidocaine (Xylocaine 2% (Sdv)) 100 mg STK-MED ONCE .ROUTE 10/11/16 17:57 10/11/16 17:58 DC Lidocaine (Xylocaine 2% (Sdv)) 100 mg STK-MED ONCE .ROUTE 10/11/16 17:57 10/11/16 17:58 DC Fentanyl (Sublimaze) 100 mcg STK-MED ONCE .ROUTE 10/11/16 18:24 10/11/16 18:25 DC Fentanyl (Sublimaze) 100 mcg STK-MED ONCE .ROUTE 10/11/16 18:25 10/11/16 18:26 DC Ketorolac Tromethamine (Toradol) 30 mg STK-MED ONCE .ROUTE 10/11/16 18:25 10/11/16 18:26 DC Hydromorphone HCl (Dilaudid (Rec)) 0.2 mg PACU ORDER PRN IV MILD PAIN LEVEL 1-3 10/11/16 18:30 10/11/16 22:31 DC Hydromorphone HCl (Dilaudid (Rec)) 0.4 mg PACU ORDER PRN IV MODERATE PAIN LEVEL 4-6 10/11/16 18:30 10/11/16 22:31 DC Hydromorphone HCl (Dilaudid (Rec)) 0.6 mg PACU ORDER PRN IV SEVERE PAIN LEVEL 7-10 10/11/16 18:30 10/11/16 22:31 DC Fentanyl (Sublimaze) 25 mcg PACU ORDER PRN IV MILD PAIN LEVEL 1-3 10/11/16 18:30 10/11/16 22:31 DC Fentanyl (Sublimaze) 50 mcg PACU ODER PRN IV MODERATE PAIN LEVEL 4-6 10/11/16 18:30 10/11/16 22:31 DC Fentanyl (Sublimaze) 75 mcg PACU ORDER PRN IV SEVERE PAIN LEVEL 7-10 10/11/16 18:30 10/11/16 22:31 DC Ondansetron HCl (Zofran Inj) 4 mg PACU ORDER PRN IV NAUSEA AND/OR VOMITING 10/11/16 18:30 10/11/16 22:31 DC Trimethobenzamide HCl (Tigan) 200 mg PACU ORDER PRN IM NAUSEA AND/OR VOMITING 10/11/16 18:30 10/11/16 22:31 DC Labetalol HCl (Labetalol) 5 mg PACU ORDER PRN IV HIGH BLOOD PRESSURE 10/11/16 18:30 10/11/16 22:31 DC Hydralazine HCl (Apresoline) 5 mg PACU ORDER PRN IV HIGH BLOOD PRESSURE 10/11/16 18:30 10/11/16 22:31 DC Ephedrine Sulfate 5 mg PACU ORDER PRN IV MAP LESS THAN 60 10/11/16 18:30 10/11/16 22:31 DC Meperidine HCl (Demerol) 25 mg PACU ORDER PRN IV POST-OP RIGORS 10/11/16 18:30 10/11/16 22:31 DC Diphenhydramine HCl (Benadryl) 25 mg PACU ORDER PRN IV PRURITUS 10/11/16 18:30 10/11/16 22:31 DC Midazolam HCl (Versed) 0.5 mg PACU ORDER PRN IV ANXIETY 10/11/16 18:30 10/11/16 22:31 DC Naloxone HCl (Narcan) 0.1 mg Q2M PRN IV FOR RESP RATE 8 OR LESS 10/11/16 18:30 10/12/16 18:29 Ketorolac Tromethamine (Toradol) 30 mg Q6H PRN IV PAIN 10/11/16 18:30 10/12/16 18:29 10/12/16 08:03 Morphine Sulfate (morphine) 2 mg Q3H PRN IV PAIN LEVEL 1-5 10/11/16 18:30 10/12/16 18:29 Morphine Sulfate (morphine) 4 mg Q3H PRN IV PAIN LEVEL 6-10 10/11/16 18:30 10/12/16 18:29 Diphenhydramine HCl (Benadryl) 25 mg Q6H PRN IV ITCHING 10/11/16 18:30 10/12/16 18:29 Ondansetron HCl (Zofran Inj) 4 mg Q6H PRN IV NAUSEA AND/OR VOMITING 10/11/16 18:30 10/12/16 18:29 Zolpidem Tartrate (Ambien) 5 mg HS MAY REPEAT X 1 PRN PO INSOMNIA 10/11/16 18:30 10/12/16 18:29 Miscellaneous Information (* Miscellaneous Pharmacy Order) Duramorph: 3 mg Epidu... GIVEN XX 10/11/16 18:30 10/11/16 22:31 DC Acetaminophen/ Codeine Phosphate (Tylenol No.3) 1 tab Q4H PRN PO PAIN LEVEL 4-6 10/11/16 22:30 Acetaminophen/ Codeine Phosphate (Tylenol No.3) 2 tab Q4H PRN PO PAIN LEVEL 7-10 10/11/16 22:30 Oxycodone/ Acetaminophen (Percocet (5/ 325)) 1 tab Q4H PRN PO PAIN LEVEL 4-6 10/11/16 22:30 Oxycodone/ Acetaminophen (Percocet (5/ 325)) 2 tab Q4H PRN PO PAIN LEVEL 7-10 10/11/16 22:30 Ibuprofen (Motrin) 600 mg Q6 PO 10/12/16 00:00 Simethicone (Mylicon) 160 mg Q8H PRN PO DISTENSION/GAS/BLOATING 10/11/16 22:30 Senna/Docusate Sodium (Senokot-S) 1 tab BID PO 10/12/16 21:00 Lanolin (Cbc-B-Bfggek) 1 applic BEDSIDE MEDICATION PRN TOP BEDSIDE FOR PAUL TO NIPPLES 10/11/16 22:30 10/12/16 06:34 Diphtheria/ Tetanus/Acell Pertussis 0.5 ml 0.5 ml ONCE ONCE IM* 10/14/16 09:00 10/14/16 09:01 Oxytocin/Lactated Ringer's 500 ml @ 0 mls/hr ONCE PRN IV For Hemorrhage Management 10/11/16 22:30 Methylergonovine Maleate (Methergine) 0.2 mg ONCE PRN IM VAGINAL BLEEDING 10/11/16 22:30 Carboprost Tromethamine (Hemabate) 250 mcg ONCE PRN IM VAGINAL BLEEDING 10/11/16 22:30 Misoprostol 1000 mcg 1,000 mcg ONCE PRN MO VAGINAL BLEEDING 10/11/16 22:30 Cefazolin Sodium 50 ml @ 100 mls/hr ONCE IVPB 10/11/16 22:30 10/11/16 23:00 DC Oxytocin/Lactated Ringer's 500 ml @ 125 mls/hr Q4H IV 10/11/16 22:23 10/12/16 04:23 Clindamycin HCl/ Dextrose (Cleocin 900 Mg/ D5W (Pmx)) 50 ml @ 50 mls/hr ONCE IVPB 10/11/16 23:00 10/11/16 23:59 DC 10/11/16 23:17 SOHEILA SALOMON MD Oct 12, 2016 11:42
[2016-10-12] MEDS: OXYCODONE/ACETAMINOPHEN (5/325) TAB PO PRN ×2 (18:52→23:24)
[2016-10-12] MEDS: SENNA/DOCUSATE NA (8.6MG/50MG) TAB PO SCH (20:49)
[2016-10-13 03:55] VITALS: BP 104/58; PULSE 61; RESP 16
[2016-10-13] MEDS: OXYCODONE/ACETAMINOPHEN (5/325) TAB PO PRN (05:19)
[2016-10-13] MEDS: IBUPROFEN 600 MG TAB PO SCH ×4 (05:32→23:44)
[2016-10-13 08:00] VITALS: BP 97/54; PULSE 92; RESP 18
[2016-10-13] MEDS: SENNA/DOCUSATE NA (8.6MG/50MG) TAB PO SCH ×2 (12:40→20:52)
[2016-10-13 16:00] VITALS: BP 104/58; PULSE 86; RESP 18
[2016-10-13 19:55] VITALS: BP 118/59; PULSE 81; RESP 18
--- NOTE | 2016-10-13 23:42 | PN ---
Date/Time of Note Date/Time of Note DATE: 10/13/16 TIME: 23:40 OB Subjective Subjective Subjective patient doing well; able to void, tolerate food, and pass flatus OB Objective Objective Objective Abdomen- gravid, n/t Perineum- scant lochia Ext- no edema OB Assessment/Plan Other Assessment: s/p c/d for failed induction, POD#2, doing well Other plan: routine post-op care likely d/c home tomorrow BIANCA BARRON MD Oct 13, 2016 23:42
[2016-10-14 04:10] VITALS: BP 120/70; PULSE 78; RESP 16
[2016-10-14] MEDS: IBUPROFEN 600 MG TAB PO SCH ×2 (05:46→12:34)
[2016-10-14 08:00] VITALS: BP 121/79; PULSE 85; RESP 18
[2016-10-14] MEDS: SENNA/DOCUSATE NA (8.6MG/50MG) TAB PO SCH (09:00)
[2016-10-14] MEDS ORDERED: DIPHTH/TET/ACEL PERTUSS (ADULT) 0.5 ML VIAL IM* ONE (09:00)
--- NOTE | 2016-10-14 13:48 | DS ---
Date/Time of Note Date/Time of Note DATE: 10/14/16 TIME: 13:45 Obstetrical Discharge Record Final Diagnosis Final Diagnosis: Term delivered Section Section: Primary Complications Other (failure to progress at second stage of labor) Augmentation: Yes Induction: Yes Rupture of Membranes: No Condition on Discharge Physical Assessment Last Vitals: Third post day ,Vital sign a stable abdomen soft incision dry bowel sound present patient had normal bowel movement extremity normal discharged home with follow-up instruction an appointment to the clinic in 1 week to DC of chantal Voiding: Yes Bowel Movement: Yes Breast: Soft, non-tender, Filling Fundus: Firm Abdomen and Incision: Healing well dry Calf Tenderness: No Patient Condition: Good SOHEILA SALOMON MD Oct 14, 2016 13:48
== END 2016-10-14 15:10 | disposition home or self-care (01) | DRG 766 ==
LOC: OBT 18:15 → L-D 18:15 → OBT 18:35 → L-D 19:12 → PP1 10-11 21:46
PROVIDERS: ADMIT Obstetrics & Gynecology; ATTEND Obstetrics & Gynecology
PROC: 10D00Z1 Extraction of Products of Conception, Low, Open Approach (ICD-10-PCS; principal; 2016-10-11 18:15)
DX: O48.0 Post-term pregnancy (principal); O61.0 Failed medical induction of labor; Z3A.40 40 weeks gestation of pregnancy; O62.0 Primary inadequate contractions; Z37.0 Single live birth
CPT/HCPCS: 62319; 76815; 85025; 85610; 85730; 86592; 86900; 86901; 87086; 87340; 90715; 99464; G0463; J1580; J1885; J2270; J2274; J2405; J2590; J2765; J3010; J3370; J7120